=== PATIENT | male | born 1955 | race Hispanic/Latino ===

== ENCOUNTER → 2022-09-16 | Outpatient (CLI) | payer OTHER ==
[~2022-09-16] VITALS: Ht 167.6 cm; Wt 87.5 kg
[~2022-09-16] MED LIST: ACET325T51 PO; ALLO100T PO; ATOR40TA71 PO; CALC667T6 PO; CARV12.511 PO; CLOP75TA32 PO; COLC0.6T73 PO; DEXA4TAB PO; FOLI1TAB85 PO; FURO40TA5 PO; HYDR-4153 PO; ISOS30TA92 PO; SPIR25TA6 PO; VITAMIN D2 PO
[2022-09-16 11:56] LABS: MEAN CORPUSCULAR HEMOGLOBIN 27.7 pg (27.0-33.0); MEAN CORPUSCULAR HGB CONC 30.7 g/dL (32.0-36.0); MEAN CORPUSCULAR VOLUME 90.2 fL (79-99); PLATELET COUNT (AUTO) 241 K/uL (130-400); RED BLOOD CELL COUNT(AUTO) 4.88 MIL/uL (4.50-6.20); RED CELL DISTRIBUTION WIDTH 15.4 % (11.0-15.5); WHITE BLOOD COUNT (AUTO) 20.5 K/uL (4.8-10.8)
[2022-09-16 12:08] LABS: CREATININE 3.6 mg/dL (0.5-1.5)
[2022-09-16 12:19] LABS: INR 1.09 (0.85-1.15); PROTHROMBIN TIME 11.8 SEC (9.6-11.6)
[2022-09-16 12:20] LABS: PARTIAL THROMBOPLASTIN TIME 29.1 SEC (26.3-35.5)
[2022-09-16 12:30] VITALS: BP 159/100
== END | disposition home or self-care (01) ==
LOC: DAH 10:00 → EDSTATUS 09-21 08:00
PROVIDERS: ATTEND Thoracic Surgery (Cardiothoracic Vascular Surgery)
DX: Z01.818 Encounter for other preprocedural examination (principal); Z20.822 Contact with and (suspected) exposure to COVID-19; N18.6 End stage renal disease
CPT/HCPCS: 71045; 87426; 80048; 85027; 85610; 85730; 86850; 86901; 86900; 36415; A6260

== ENCOUNTER 2022-10-05 08:32 | Day surgery (SDC) | payer OTHER ==
[2022-10-02 12:36] LABS: HEMATOCRIT 36.1 % (42-54); MEAN CORPUSCULAR HEMOGLOBIN 28.3 pg (27.0-33.0); MEAN CORPUSCULAR HGB CONC 31.3 g/dL (32.0-36.0); MEAN CORPUSCULAR VOLUME 90.5 fL (79-99); RED BLOOD CELL COUNT(AUTO) 3.99 MIL/uL (4.50-6.20); RED CELL DISTRIBUTION WIDTH 16.5 % (11.0-15.5); WHITE BLOOD COUNT (AUTO) 10.1 K/uL (4.8-10.8)
[2022-10-02 12:48] LABS: INR 1.1 (0.85-1.15); PROTHROMBIN TIME 11.9 SEC (9.6-11.6)
[2022-10-02 12:49] LABS: PARTIAL THROMBOPLASTIN TIME 30.5 SEC (26.3-35.5)
[2022-10-02 12:51] VITALS: BP 133/81
[2022-10-02 12:52] LABS: CREATININE 3.8 mg/dL (0.5-1.5); POTASSIUM 4.8 mmol/L (3.5-5.1)
[~2022-10-05] VITALS: Ht 167.6 cm; Wt 87.5 kg
[2022-10-05] VITALS (17 sets, daily range): BP systolic 114–131; BP diastolic 62–90
[~2022-10-05 08:32] MED LIST changes: -ACET325T51 PO; -DEXA4TAB PO; -FOLI1TAB85 PO; -SPIR25TA6 PO
[2022-10-05] MEDS ORDERED: CEFAZOLIN SODIUM 2 GM VIAL ONE (09:15)
[2022-10-05 10:08] LABS: POTASSIUM 4.3 mmol/L (3.5-5.1)
[2022-10-05] MEDS ORDERED: 0.9% NACL 500ML IV.SOLN 500 ML IV ONE (10:35)
[2022-10-05] MEDS ORDERED: LIDOCAINE HCL 1% 20 ML VIAL ONE (13:02)
[2022-10-05] MEDS ORDERED: BUPIVACAINE/PF 0.5% 30ML VIAL ONE (13:03)
[2022-10-05] MEDS ORDERED: CEFAZOLIN SODIUM 1 GM VIAL ONE (13:03)
[2022-10-05] MEDS ORDERED: MIDAZOLAM HCL 1 MG/ML 2ML VIAL ONE (13:27)
[2022-10-05] MEDS ORDERED: ROCURONIUM 10MG/1ML SYR 10 MG/ML ML ONE (13:29)
[2022-10-05] MEDS ORDERED: PROPOFOL 10 MG/ML 20ML VIAL IV ONE (13:29)
[2022-10-05] MEDS ORDERED: BUPIVACAINE/PF 0.25% 30ML VIAL IJ ONE (13:37)
[2022-10-05] MEDS ORDERED: FENTANYL CITRATE PF 50 MCG/1 ML 2ML VIAL ONE (13:55)
[2022-10-05] MEDS ORDERED: GLYCOPYRROLATE 1 MG/5 ML SYRINGE ONE (14:24)
[2022-10-05] MEDS ORDERED: NEOSTIGMINE 5MG/5ML SYR IV ONE (14:24)
== END 2022-10-05 16:25 | disposition home or self-care (01) ==
LOC: DAH 08:32
PROVIDERS: ATTEND Thoracic Surgery (Cardiothoracic Vascular Surgery)
DX: E11.22 Type 2 diabetes mellitus with diabetic chronic kidney disease (principal); Z20.822 Contact with and (suspected) exposure to COVID-19; I13.11 Hypertensive heart and chronic kidney disease without heart failure, with stage 5 chronic kidney disease, or end stage renal disease; N18.6 End stage renal disease; E78.5 Hyperlipidemia, unspecified; E66.01 Morbid (severe) obesity due to excess calories; F17.200 Nicotine dependence, unspecified, uncomplicated; I45.10 Unspecified right bundle-branch block; M10.9 Gout, unspecified; Z86.73 Personal history of transient ischemic attack (TIA), and cerebral infarction without residual deficits; Z99.2 Dependence on renal dialysis; Z79.01 Long term (current) use of anticoagulants; Z79.899 Other long term (current) drug therapy
CPT/HCPCS: 80048 ×2; 85027; 85610; 85730; 86850 ×2; 86900 ×2; 86901 ×2; 86156; 86870; 87426; 36415 ×2; 93005; 36821; 86922; 82948; A6260; A4663; A6207; J7030; A4215 ×2; J7040; J3010; J0690 ×2; J3490 ×2; J2710; J2250; J2704; J1644; G0168; A4649; C1713 ×2; A4223; A4222; A4221